=== PATIENT | female | born 1980 | race Caucasian/White ===

== ENCOUNTER 2024-06-01 09:14 | Outpatient (CLI) | payer SELFPAY ==
[2024-06-01 10:22] LABS: Hematocrit 40.1 % (34.9-44.5); Hemoglobin 13.2 g/dL (12.0-15.5); Mean Corpuscular HGB CONC 32.9 g/dL (32.0-36.0); Mean Corpuscular Hemoglobin 29.9 pg (27.0-33.0); Mean Corpuscular Volume 90.7 fL (81.6-98.3); Mean Platelet Volume 9.3 fL (7.4-10.4); Platelet Count 354 10x3/uL (150-450); RBC Distribution Width 11.1 % (11.5-14.5); Red Blood Cell (RBC) Count 4.42 10x6/uL (3.90-5.03); White Blood Cell (WBC) Count 5.97 10x3/uL (3.5-10.5)
[2024-06-01 10:48] LABS: BHCG - Serum Negative (NEGATIVE); Pregs Control Background? CLEAR/WHITE (CLR/WHITE); Pregs Control Bar Appear? YES (CONTROL BAR)
== END 2024-06-01 09:15 | disposition home or self-care (01) ==
LOC: CSHLAB 09:14
PROVIDERS: ATTEND Obstetrics & Gynecology
DX: Z01.812 Encounter for preprocedural laboratory examination (principal); D27.0 Benign neoplasm of right ovary; N92.0 Excessive and frequent menstruation with regular cycle; N94.6 Dysmenorrhea, unspecified
CPT/HCPCS: 84703; 85027; 86850; 86900; 86901